=== PATIENT | male | born 1970 | race Caucasian/White ===

== ENCOUNTER → 2018-11-05 | Outpatient (CLI) | payer MEDICAID ==
--- NOTE | 2018-11-06 13:20 | XCELERA REPORT ---
[address] [address] Lower Extremity Arterial Evaluation Name: VIKAS OROT Age: 48 yrs Gender: Male : 1970 Patient Status: Outpatient Patient Location: Study Date: 11/05/2018 09:33 AM Procedure: A color flow and duplex scan of the lower extremity arteries was performed bilaterally with velocity and waveform anaylsis. Ankle brachial indicies performed. Reason For Study: LT CALF ULCER Ordering Physician: ISAIAH ATWOOD Performed By: Rad Mallory Measurements and Calculations Right Left HOOP PUNCHER PSV 115.9 184.6 cm/sec Prox PFA PSV -59.4 -77.7 cm/sec Prox SFA PSV 129.5 157.2 cm/sec Mid SFA PSV -132.0 -155.4cm/sec Dist SFA PSV -131.3 -148.4cm/sec Prox Pop A PSV 102.6 128.1 cm/sec Dist TONY PSV 89.1 103.1 cm/sec Dist CLINICAL RESEARCH COORDINATOR PSV 82.0 -66.3 cm/sec Soham Pedis PSV 220.0 247.7 cm/sec Right Side Arterial Evaluation Normal velocity and triphasic waveforms noted from the Common Femoral artery to the infrageniculate vessels . Ankle Brachial index 1.06. Left Side Arterial Evaluation Normal velocity and triphasic waveforms noted from the Common Femoral artery to the Anterior Tibial . Biphasic with normal velocity, minimal spectral broadening in the Posterior Tibial. Ankle Brachial index 0.99.. Interpretation Summary No hemodynamically significant lesions in the right lower extremity only, on duplex imaging, at rest. Mild hemodynamically significant lesions in the left lower extremity only, on duplex imaging, at rest. RODRICK's are normal, suggesting normal arterial flow. : ISAIAH ATWODO > Elia Leigh
== END ==
LOC: SP 09:12
PROVIDERS: ATTEND Nurse Practitioner Family
DX: L97.222 Non-pressure chronic ulcer of left calf with fat layer exposed (principal)
CPT/HCPCS: 93922; 93925